=== PATIENT | female | born 1980 | race Caucasian/White ===

== ENCOUNTER → 2021-07-20 | Outpatient (CLI) | payer OTHER ==
[~2021-07-20] MED LIST: BENTYL 20MG TAB20 MG PO; CARAFATE1 GM/10 ML PO; ZOFRAN ODT 4 MG4 MG PO
== END ==
LOC: KOH-I 08:00
DX: M79.604 Pain in right leg (principal); M79.605 Pain in left leg; I10 Essential (primary) hypertension; E78.5 Hyperlipidemia, unspecified; E55.9 Vitamin D deficiency, unspecified; E53.8 Deficiency of other specified B group vitamins; I70.213 Atherosclerosis of native arteries of extremities with intermittent claudication, bilateral legs; M54.41 Lumbago with sciatica, right side; M54.42 Lumbago with sciatica, left side
CPT/HCPCS: 93922; 93925